=== PATIENT | female | born 1965 | race Two or more races ===

== ENCOUNTER 2018-08-03 21:06 | Emergency (ER) | payer OTHER ==
[~2018-08-03] VITALS: Ht 157.5 cm; Wt 72.6 kg
[2018-08-04] MEDS ORDERED: KETOROLAC TROMETH 60MG/2ML VIAL IM ONE
[2018-08-04] MEDS ORDERED: MORPHINE SULF INJ 2 MG/ML SYRINGE 1ML IV ONE (01:00)
[2018-08-04] MEDS ORDERED: ONDANSETRON HCL 4 MG/2 ML VIAL IV ONE (01:00)
[2018-08-04 02:25] VITALS: BP 158/92
== END 2018-08-04 02:33 | disposition short-term general hospital (02) ==
LOC: ER 21:06 → EDBD 21:06 → ER 08-04 02:33
DX: S20.211A Contusion of right front wall of thorax, initial encounter (principal); M62.838 Other muscle spasm; E11.9 Type 2 diabetes mellitus without complications; E78.5 Hyperlipidemia, unspecified; I10 Essential (primary) hypertension; R58 Hemorrhage, not elsewhere classified; I25.10 Atherosclerotic heart disease of native coronary artery without angina pectoris; Z90.49 Acquired absence of other specified parts of digestive tract; V43.62XA Car passenger injured in collision with other type car in traffic accident, initial encounter; Y93.89 Activity, other specified; Y92.488 Other paved roadways as the place of occurrence of the external cause; Y99.8 Other external cause status
CPT/HCPCS: 71045; 74176; 82962; 96374; 96375; 99291; J2270; J2405; J7030